=== PATIENT | female | born 1935 | race Caucasian/White ===

== ENCOUNTER 2017-08-08 17:29 | Inpatient (IN) ==
[2017-08-08] MEDS ORDERED: hydrALAZINE 20 MG/1 ML VIAL IV ONE (20:35)
[2017-08-08] MEDS ORDERED: PROPRANOLOL 40 MG TABLET PO SCH (21:00)
[2017-08-08] MEDS ORDERED: FUROSEMIDE 40 MG/4 ML VIAL IV ONE (22:00)
[2017-08-09] MEDS: METOPROLOL TARTRATE 25 MG TABLET PO SCH ×2 (00:30→09:48)
[2017-08-09 05:08] LABS: Basophils % 0.4 % (0.0-0.8); Eosinophils # 0.2 10*3/uL (0.0-0.87); Eosinophils % 2.6 % (0.00-10.9); Hematocrit 36.6 VOL% (35.7-47.0); Hemoglobin 12.3 GM/DL (12.0-16.0); Immature Granulocytes % 0.4 %; Immature Granulocytes Absolute 0.03 #; Lymphocytes # 2.3 10*3/uL (1.4-4.0); Lymphocytes % 28.1 % (21.3-54.2); Mean Corpuscular HGB Conc 33.6 GM/DL (32-36); Mean Corpuscular Hemoglobin 29 PG (27-34); Mean Corpuscular Volume 86.9 FL (87-102); Mean Platelet Volume 10.4 FL (9.6-12.0); Monocytes # 0.7 10*3/uL (0.11-0.8); Monocytes % 8.7 % (1.7-12.7); Neutrophils # 4.9 10*3/uL (1.4-7.4); Neutrophils % 59.8 % (38.7-73.9); Platelet Count 210 T/CUMM (130-400); Red Blood Count 4.21 MC/CUMM (3.8-5.5); Red Cell Distribution Width 13.6 % (9.3-17.3); White Blood Count 8.2 T/CUMM (4-12)
[2017-08-09 05:11] LABS: Basophils % 0.5 % (0.0-0.8); Eosinophils # 0.2 10*3/uL (0.0-0.87); Eosinophils % 2.7 % (0.00-10.9); Hematocrit 36.4 VOL% (35.7-47.0); Hemoglobin 11.9 GM/DL (12.0-16.0); Immature Granulocytes % 0.2 %; Immature Granulocytes Absolute 0.02 #; Lymphocytes # 2.3 10*3/uL (1.4-4.0); Lymphocytes % 28.2 % (21.3-54.2); Mean Corpuscular HGB Conc 32.7 GM/DL (32-36); Mean Corpuscular Hemoglobin 29 PG (27-34); Mean Corpuscular Volume 88.6 FL (87-102); Mean Platelet Volume 10.8 FL (9.6-12.0); Monocytes # 0.7 10*3/uL (0.11-0.8); Monocytes % 8.6 % (1.7-12.7); Neutrophils # 4.9 10*3/uL (1.4-7.4); Neutrophils % 59.8 % (38.7-73.9); Platelet Count 204 T/CUMM (130-400); Red Blood Count 4.11 MC/CUMM (3.8-5.5); Red Cell Distribution Width 13.5 % (9.3-17.3); White Blood Count 8.1 T/CUMM (4-12)
[2017-08-09 05:52] LABS: Albumin 3.5 G/DL (3.4-5.0); Bilirubin,Total 1.1 MG/DL (0.2-1.0); Calcium 8.9 MG/DL (8.5-10.1); Osmolality,Calculated 285.1 MOS/KG (273-304); Potassium 3.6 MMOL/L (3.5-5.1); Total Protein 6.1 G/DL (6.4-8.3)
[2017-08-09] MEDS: ENOXAPARIN 80 MG/0.8 ML SYRINGE SUBCUT SCH ×2 (08:32→21:50)
[2017-08-09] MEDS ORDERED: amLODIPine 2.5 MG TABLET PO SCH (09:00)
[2017-08-09] MEDS: MULTIVITAMIN (OCUVITE) TABLET PO SCH (09:44)
[2017-08-09] MEDS: GLUCOSAMINE 500 MG TABLET PO SCH (09:45)
[2017-08-09] MEDS: GABAPENTIN 100 MG CAPSULE PO SCH ×2 (09:45→21:50)
[2017-08-09] MEDS: CALCIUM (CARBONATE)/VITAMIN D 600 MG-400 UNIT TABLET PO SCH (09:45)
[2017-08-09] MEDS: ASPIRIN CHEW 81 MG TABLET PO SCH (09:46)
[2017-08-09] MEDS: PANTOPRAZOLE 40 MG TABLET PO SCH (09:47)
[2017-08-09] MEDS: DULoxetine 30 MG CAPSULE PO SCH (09:47)
[2017-08-09] MEDS: CYCLOBENZAPRINE 10 MG TABLET PO PRN (09:47)
[2017-08-09] MEDS: DILTIAZEM INJ 100 MG in SODIUM CHLORIDE 0.9% 100 ML IV SCH ×2 (12:02→21:31)
[2017-08-09 13:51] LABS: Apearance,Urine Slightly Hazy (Clear); Bacteria,Urine Occasional /HPF (Few); Bilirubin,Urine Negative (Negative); Blood, Urine Negative (Negative); Glucose,Urine (UA) Negative (Negative); Hyaline Casts,Urine 1 /LPF (0-3); Ketones,Urine Negative (Negative); Mucus,Urine Occasional /LPF (Occasional); Nitrite,Urine Positive (Negative); Protein,Urine Negative; RBC,Urine 2 /HPF (0-4); Squamous Epithelial Cell,Urine Occasional /HPF (0-10); Urine Color Yellow (Yellow); Urine Specific Gravity 1.012 (1.001-1.035); Urine Urobilinogen < 2.0 EU/DL (0.2-1.0); WBC,Urine 92 /HPF (0-6)
[2017-08-09] MEDS: METOPROLOL TARTRATE 50 MG TABLET PO SCH (21:49)
[2017-08-10] MEDS: DILTIAZEM INJ 100 MG in SODIUM CHLORIDE 0.9% 100 ML IV SCH ×3 (01:20→14:34)
[2017-08-10 04:57] LABS: Basophils % 0.4 % (0.0-0.8); Eosinophils # 0.2 10*3/uL (0.0-0.87); Eosinophils % 2.3 % (0.00-10.9); Hematocrit 37.5 VOL% (35.7-47.0); Hemoglobin 12.1 GM/DL (12.0-16.0); Immature Granulocytes % 0.3 %; Immature Granulocytes Absolute 0.03 #; Lymphocytes # 2.7 10*3/uL (1.4-4.0); Mean Corpuscular HGB Conc 32.3 GM/DL (32-36); Mean Corpuscular Hemoglobin 29 PG (27-34); Mean Corpuscular Volume 89.5 FL (87-102); Mean Platelet Volume 10.4 FL (9.6-12.0); Monocytes # 0.8 10*3/uL (0.11-0.8); Monocytes % 8.5 % (1.7-12.7); Neutrophils # 5.4 10*3/uL (1.4-7.4); Neutrophils % 59.5 % (38.7-73.9); Platelet Count 201 T/CUMM (130-400); Red Blood Count 4.19 MC/CUMM (3.8-5.5); Red Cell Distribution Width 13.5 % (9.3-17.3); White Blood Count 9.1 T/CUMM (4-12)
[2017-08-10 05:37] LABS: Calcium 8.5 MG/DL (8.5-10.1); Magnesium 1.9 MG/DL (1.8-2.4); Potassium 3.6 MMOL/L (3.5-5.1); Thyroid Stimulating Hormone 1.51 uIU/ml (0.358-3.74)
[2017-08-10] MEDS: GLUCOSAMINE 500 MG TABLET PO SCH (08:50)
[2017-08-10] MEDS: MULTIVITAMIN (OCUVITE) TABLET PO SCH (08:50)
[2017-08-10] MEDS: GABAPENTIN 100 MG CAPSULE PO SCH ×2 (08:50→21:38)
[2017-08-10] MEDS: METOPROLOL TARTRATE 50 MG TABLET PO SCH (08:50)
[2017-08-10] MEDS: ASPIRIN CHEW 81 MG TABLET PO SCH (08:50)
[2017-08-10] MEDS: CALCIUM (CARBONATE)/VITAMIN D 600 MG-400 UNIT TABLET PO SCH (08:50)
[2017-08-10] MEDS: DULoxetine 30 MG CAPSULE PO SCH (08:50)
[2017-08-10] MEDS: ENOXAPARIN 80 MG/0.8 ML SYRINGE SUBCUT SCH ×2 (08:51→21:37)
[2017-08-10] MEDS: PANTOPRAZOLE 40 MG TABLET PO SCH (08:51)
[2017-08-10] MEDS: SOTALOL 80 MG TABLET PO SCH ×2 (10:45→21:39)
[2017-08-10] MEDS ORDERED: MAGNESIUM SULF RIDER 2 GM in PREMIX 1 EACH IV PRN (14:12)
[2017-08-10] MEDS ORDERED: POTASSIUM CHLORIDE RIDER 10 MEQ in PREMIX 1 EACH IV PRN (14:12)
[2017-08-10] MEDS: POTASSIUM CHLORIDE 20 MEQ TABLET PO PRN ×2 (14:33→16:41)
[2017-08-10] MEDS ORDERED: ONDANSETRON 4 MG/2 ML VIAL IV PRN (16:29)
[2017-08-10] MEDS: CYCLOBENZAPRINE 10 MG TABLET PO PRN (16:41)
[2017-08-10] MEDS: METOPROLOL TARTRATE 25 MG TABLET PO SCH (21:38)
[2017-08-10] MEDS: SODIUM CHLORIDE 0.45% 1,000 ML IV SCH ×2 (21:40→23:21)
[2017-08-11 05:14] LABS: Basophils % 0.5 % (0.0-0.8); Eosinophils # 0.2 10*3/uL (0.0-0.87); Eosinophils % 2.5 % (0.00-10.9); Hematocrit 36.3 VOL% (35.7-47.0); Hemoglobin 11.8 GM/DL (12.0-16.0); Immature Granulocytes % 0.5 %; Immature Granulocytes Absolute 0.04 #; Lymphocytes # 2.1 10*3/uL (1.4-4.0); Lymphocytes % 27.3 % (21.3-54.2); Mean Corpuscular HGB Conc 32.5 GM/DL (32-36); Mean Corpuscular Hemoglobin 29 PG (27-34); Mean Corpuscular Volume 89.4 FL (87-102); Mean Platelet Volume 10.6 FL (9.6-12.0); Monocytes # 0.8 10*3/uL (0.11-0.8); Monocytes % 10.7 % (1.7-12.7); Neutrophils # 4.5 10*3/uL (1.4-7.4); Neutrophils % 58.5 % (38.7-73.9); Platelet Count 189 T/CUMM (130-400); Red Blood Count 4.06 MC/CUMM (3.8-5.5); Red Cell Distribution Width 13.5 % (9.3-17.3); White Blood Count 7.7 T/CUMM (4-12)
[2017-08-11 05:51] LABS: Calcium 8.6 MG/DL (8.5-10.1); Osmolality,Calculated 286.1 MOS/KG (273-304); Potassium 4.1 MMOL/L (3.5-5.1)
[2017-08-11] MEDS ORDERED: DIAZEPAM 5 MG TABLET PO ONE (06:30)
[2017-08-11] MEDS ORDERED: diphenhydrAMINE CAP 25 MG CAPSULE PO ONE (06:30)
[2017-08-11] MEDS: DILTIAZEM INJ 100 MG in SODIUM CHLORIDE 0.9% 100 ML IV SCH ×2 (06:52→13:45)
[2017-08-11] MEDS ORDERED: HEPARIN/NACL 0.9% 2 UNITS/ML 2,000 ML IV ONE (08:24)
[2017-08-11] MEDS ORDERED: LIDOCAINE 1% 20 ML VIAL ONE (08:24)
[2017-08-11] MEDS: SOTALOL 80 MG TABLET PO SCH ×2 (09:03→20:41)
[2017-08-11] MEDS: ASPIRIN CHEW 81 MG TABLET PO SCH (09:03)
[2017-08-11] MEDS: CALCIUM (CARBONATE)/VITAMIN D 600 MG-400 UNIT TABLET PO SCH (09:03)
[2017-08-11] MEDS: DULoxetine 30 MG CAPSULE PO SCH (09:03)
[2017-08-11] MEDS: GABAPENTIN 100 MG CAPSULE PO SCH ×2 (09:03→20:41)
[2017-08-11] MEDS: METOPROLOL TARTRATE 25 MG TABLET PO SCH ×2 (09:03→20:41)
[2017-08-11] MEDS: MULTIVITAMIN (OCUVITE) TABLET PO SCH (09:03)
[2017-08-11] MEDS: PANTOPRAZOLE 40 MG TABLET PO SCH (09:04)
[2017-08-11] MEDS: GLUCOSAMINE 500 MG TABLET PO SCH (09:09)
[2017-08-11] MEDS ORDERED: fentaNYL 100 MCG/2 ML VIAL ONE (09:57)
[2017-08-11] MEDS ORDERED: MIDAZOLAM 2 MG/2 ML VIAL ONE (09:57)
[2017-08-11] MEDS: SODIUM CHLORIDE 0.45% 1,000 ML IV SCH (13:00)
[2017-08-11] MEDS ORDERED: LEVOFLOXACIN INJ 750 MG in PREMIX 1 EACH IV SCH (13:30)
[2017-08-11] MEDS: APIXABAN 5 MG TABLET PO SCH (20:41)
[2017-08-11] MEDS ORDERED: ACETAMINOPHEN 500 MG TABLET PO PRN (23:06)
[2017-08-12] MEDS ORDERED: ACETAMINOPHEN 500 MG TABLET PO SCH
[2017-08-12] MEDS: SODIUM CHLORIDE 0.45% 1,000 ML IV SCH ×2 (02:21→23:10)
[2017-08-12 04:22] LABS: Basophils % 0.3 % (0.0-0.8); Eosinophils # 0.2 10*3/uL (0.0-0.87); Hematocrit 36.1 VOL% (35.7-47.0); Hemoglobin 11.9 GM/DL (12.0-16.0); Immature Granulocytes % 0.1 %; Immature Granulocytes Absolute 0.01 #; Lymphocytes # 1.6 10*3/uL (1.4-4.0); Lymphocytes % 21.6 % (21.3-54.2); Mean Corpuscular Hemoglobin 29 PG (27-34); Mean Platelet Volume 10.8 FL (9.6-12.0); Monocytes # 0.6 10*3/uL (0.11-0.8); Monocytes % 7.9 % (1.7-12.7); Neutrophils # 4.9 10*3/uL (1.4-7.4); Neutrophils % 67.1 % (38.7-73.9); Platelet Count 176 T/CUMM (130-400); Red Cell Distribution Width 13.2 % (9.3-17.3); White Blood Count 7.3 T/CUMM (4-12)
[2017-08-12 04:50] LABS: Calcium 8.7 MG/DL (8.5-10.1); Magnesium 1.8 MG/DL (1.8-2.4); Osmolality,Calculated 283.3 MOS/KG (273-304)
[2017-08-12] MEDS: PANTOPRAZOLE 40 MG TABLET PO SCH (10:18)
[2017-08-12] MEDS: METOPROLOL TARTRATE 25 MG TABLET PO SCH (10:18)
[2017-08-12] MEDS: SOTALOL 80 MG TABLET PO SCH ×2 (10:18→21:33)
[2017-08-12] MEDS: DULoxetine 30 MG CAPSULE PO SCH (10:18)
[2017-08-12] MEDS: ASPIRIN CHEW 81 MG TABLET PO SCH (10:18)
[2017-08-12] MEDS: APIXABAN 5 MG TABLET PO SCH ×2 (10:18→21:34)
[2017-08-12] MEDS: CALCIUM (CARBONATE)/VITAMIN D 600 MG-400 UNIT TABLET PO SCH (10:18)
[2017-08-12] MEDS: GLUCOSAMINE 500 MG TABLET PO SCH (10:18)
[2017-08-12] MEDS: GABAPENTIN 100 MG CAPSULE PO SCH ×2 (10:18→21:34)
[2017-08-12] MEDS: MULTIVITAMIN (OCUVITE) TABLET PO SCH (10:18)
[2017-08-12] MEDS ORDERED: diphenhydrAMINE 2% CREAM 28 GM TUBE TOP PRN (10:42)
[2017-08-12] MEDS ORDERED: diphenhydrAMINE CAP 25 MG CAPSULE PO PRN (10:43)
[2017-08-12] MEDS ORDERED: methylPREDNISolone SOD SUC 125 MG/2 ML VIAL IV ONE (10:44)
[2017-08-12] MEDS ORDERED: IPRATROPIUM 500 MCG/2.5 ML NEB RESP TX PRN (12:44)
[2017-08-12] MEDS: DILTIAZEM INJ 100 MG in SODIUM CHLORIDE 0.9% 100 ML IV SCH (13:33)
[2017-08-12] MEDS: SULFAMETHOX/TRIMETHOPRIM 800-160 MG TABLET PO SCH (21:33)
[2017-08-12] MEDS: METOPROLOL TARTRATE 50 MG TABLET PO SCH (21:34)
[2017-08-13] MEDS: SODIUM CHLORIDE 0.45% 1,000 ML IV SCH (03:16)
[2017-08-13 05:06] LABS: Hematocrit 35.5 VOL% (35.7-47.0); Hemoglobin 11.9 GM/DL (12.0-16.0); Immature Granulocytes % 0.5 %; Immature Granulocytes Absolute 0.03 #; Lymphocytes # 0.7 10*3/uL (1.4-4.0); Mean Corpuscular HGB Conc 33.5 GM/DL (32-36); Mean Corpuscular Hemoglobin 29 PG (27-34); Mean Corpuscular Volume 85.7 FL (87-102); Mean Platelet Volume 10.8 FL (9.6-12.0); Monocytes # 0.3 10*3/uL (0.11-0.8); Monocytes % 4.7 % (1.7-12.7); Neutrophils # 5.3 10*3/uL (1.4-7.4); Neutrophils % 83.8 % (38.7-73.9); Platelet Count 187 T/CUMM (130-400); Red Blood Count 4.14 MC/CUMM (3.8-5.5); White Blood Count 6.4 T/CUMM (4-12)
[2017-08-13 05:30] LABS: Calcium 8.3 MG/DL (8.5-10.1); Osmolality,Calculated 284.4 MOS/KG (273-304); Potassium 3.9 MMOL/L (3.5-5.1)
[2017-08-13] MEDS: GLUCOSAMINE 500 MG TABLET PO SCH (09:21)
[2017-08-13] MEDS: SOTALOL 80 MG TABLET PO SCH (09:21)
[2017-08-13] MEDS: CALCIUM (CARBONATE)/VITAMIN D 600 MG-400 UNIT TABLET PO SCH (09:21)
[2017-08-13] MEDS: MULTIVITAMIN (OCUVITE) TABLET PO SCH (09:21)
[2017-08-13] MEDS: ASPIRIN CHEW 81 MG TABLET PO SCH (09:22)
[2017-08-13] MEDS: DULoxetine 30 MG CAPSULE PO SCH (09:22)
[2017-08-13] MEDS: SULFAMETHOX/TRIMETHOPRIM 800-160 MG TABLET PO SCH (09:22)
[2017-08-13] MEDS: PANTOPRAZOLE 40 MG TABLET PO SCH (09:22)
[2017-08-13] MEDS: POTASSIUM CHLORIDE 20 MEQ TABLET PO PRN (09:22)
[2017-08-13] MEDS: METOPROLOL TARTRATE 50 MG TABLET PO SCH (09:23)
[2017-08-13] MEDS: GABAPENTIN 100 MG CAPSULE PO SCH (09:23)
[2017-08-13] MEDS: APIXABAN 5 MG TABLET PO SCH (09:23)
[2017-08-13 12:12] VITALS: BP 165/80
[2017-08-13] MEDS: DILTIAZEM INJ 100 MG in SODIUM CHLORIDE 0.9% 100 ML IV SCH (13:38)
== END 2017-08-13 14:49 | disposition home health service (06) | DRG 286 ==
LOC: N.TELEN 17:53 → SUATTDRO 17:53
PROVIDERS: ADMIT Internal Medicine; ATTEND Internal Medicine Cardiovascular Disease
PROC: CLCCHCL (ICD-10-PCS; 2017-08-11 10:15)

== ENCOUNTER 2019-07-02 11:55 | Inpatient (IN) ==
[2019-07-02] MEDS ORDERED: ONDANSETRON 4 MG/2 ML VIAL IV PRN (12:46)
[2019-07-02] MEDS ORDERED: LOPERAMIDE 2 MG CAPSULE PO PRN (12:54)
[2019-07-02 14:20] LABS: Basophils % 0.3 % (0.0-0.8); Eosinophils # 0.3 10*3/uL (0.0-0.87); Eosinophils % 3.2 % (0.00-10.9); Hematocrit 39.6 VOL% (35.7-47.0); Hemoglobin 12.9 GM/DL (12.0-16.0); Immature Granulocytes % 0.7 %; Immature Granulocytes Absolute 0.07 #; Lymphocytes # 0.3 10*3/uL (1.4-4.0); Lymphocytes % 2.7 % (21.3-54.2); Mean Corpuscular HGB Conc 32.6 GM/DL (32-36); Mean Corpuscular Volume 87.8 FL (87-102); Mean Platelet Volume 10.3 FL (9.6-12.0); Monocytes % 6.2 % (1.7-12.7); Neutrophils % 86.9 % (38.7-73.9); Platelet Count 184 T/CUMM (130-400); Red Blood Count 4.51 MC/CUMM (3.8-5.5); Red Cell Distribution Width 13.3 % (9.3-17.3); White Blood Count 9.7 T/CUMM (4-12)
[2019-07-02 14:42] LABS: Alanine Aminotransferase < 6 U/L (13-56); Albumin 3.3 G/DL (3.4-5.0); Alkaline Phosphatase 57 U/L (45-117); Aspartate Amino Transferase 16 U/L (0-37); Blood Urea Nitrogen 23 MG/DL (7-18); Calcium 8.3 MG/DL (8.5-10.1); Estimated Glom Filtration Rate 54 ML/MIN; Glucose 120 MG/DL (74-106); Osmolality,Calculated 283.4 MOS/KG (273-304); Total Protein 6.6 G/DL (6.4-8.3)
[2019-07-02 14:49] LABS: Anisocytosis Slight; Band Neutrophils 3 % (0-10); Eosinophils 4 % (0-10); Lymphocytes 4 % (20-55); Microcytosis Slight; Platelet Estimate Decreased; Segmented Neutrophils 84 % (50-85); Total Cells Counted 100
[2019-07-02] MEDS ORDERED: POTASSIUM CHLORIDE 20 MEQ TABLET PO ONE (16:07)
[2019-07-02] MEDS ORDERED: MAGNESIUM SULF RIDER 2 GM in PREMIX 1 EACH IV ONE (16:08)
[2019-07-02] MEDS: POTASSIUM CHLORIDE INJ 10 MEQ in SODIUM CHLORIDE 0.9% 1,000 ML IV SCH (16:12)
[2019-07-02] MEDS ORDERED: MAGNESIUM SULF RIDER 4 GM in PREMIX 1 EACH IV PRN (16:27)
[2019-07-02] MEDS: MAGNESIUM SULF RIDER 2 GM in PREMIX 1 EACH IV PRN (17:32)
[2019-07-02] MEDS ORDERED: CETIRIZINE 10 MG TABLET PO PRN (17:48)
[2019-07-02] MEDS: VANCOMYCIN 50 MG/ML 60 ML/BOTTLE PO SCH (19:55)
[2019-07-02] MEDS: ENOXAPARIN 30 MG/0.3 ML SYRINGE SUBCUT SCH (21:20)
[2019-07-03] MEDS: POTASSIUM CHLORIDE INJ 10 MEQ in SODIUM CHLORIDE 0.9% 1,000 ML IV SCH ×3 (00:28→17:07)
[2019-07-03] MEDS: VANCOMYCIN 50 MG/ML 60 ML/BOTTLE PO SCH ×4 (01:03→17:05)
[2019-07-03 01:39] LABS: Apearance,Urine CLEAR (Clear); Bacteria,Urine Occasional /HPF (Few); Blood, Urine Small mg/dL (Negative); Glucose,Urine (UA) Negative (Negative); Hyaline Casts,Urine 11 /LPF (0-3); Ketones,Urine 80 mg/dL (Negative); Mucus,Urine Occasional /LPF (Occasional); Nitrite,Urine Negative (Negative); Protein,Urine 100 MG/DL; RBC,Urine 13 /HPF (0-4); Renal Epithelial Cells,Urine Occasional /HPF (<1); Squamous Epithelial Cell,Urine Occasional /HPF (0-10); Urine Color Amber (Yellow); Urine Specific Gravity 1.028 (1.001-1.035); Urine Urobilinogen < 2.0 EU/DL (0.2-1.0); WBC,Urine 31 /HPF (0-6)
[2019-07-03 01:40] LABS: Bilirubin,Urine Moderate mg/dL (Negative)
[2019-07-03 08:22] LABS: Osmolality,Calculated 281.4 MOS/KG (273-304)
[2019-07-03] MEDS ORDERED: PROPRANOLOL PO SCH (09:00)
[2019-07-03] MEDS ORDERED: CARBIDOPA/LEVODOPA 25-100 MG TABLET PO SCH (09:00)
[2019-07-03] MEDS: GABAPENTIN 600 MG TABLET PO SCH (10:43)
[2019-07-03] MEDS: PANTOPRAZOLE 40 MG TABLET PO SCH (10:44)
[2019-07-03 11:22] LABS: Basophils % 0.3 % (0.0-0.8); Eosinophils # 0.3 10*3/uL (0.0-0.87); Eosinophils % 3.5 % (0.00-10.9); Hematocrit 36.1 VOL% (35.7-47.0); Hemoglobin 11.7 GM/DL (12.0-16.0); Immature Granulocytes % 0.7 %; Immature Granulocytes Absolute 0.07 #; Lymphocytes # 0.4 10*3/uL (1.4-4.0); Lymphocytes % 3.8 % (21.3-54.2); Mean Corpuscular HGB Conc 32.4 GM/DL (32-36); Mean Corpuscular Volume 89.1 FL (87-102); Mean Platelet Volume 10.8 FL (9.6-12.0); Monocytes % 8.5 % (1.7-12.7); Neutrophils % 83.2 % (38.7-73.9); Platelet Count 166 T/CUMM (130-400); Red Blood Count 4.05 MC/CUMM (3.8-5.5); Red Cell Distribution Width 13.4 % (9.3-17.3); White Blood Count 9.5 T/CUMM (4-12)
[2019-07-03 12:00] LABS: Band Neutrophils 9 % (0-10); Eosinophils 7 % (0-10); Lymphocytes 4 % (20-55); Segmented Neutrophils 74 % (50-85); Total Cells Counted 100
[2019-07-03] MEDS ORDERED: cefTRIAXone 1,000 MG in SYRINGE 1 EACH IV SCH (12:00)
[2019-07-03 12:01] LABS: Microcytosis Slight
[2019-07-03 12:02] LABS: Platelet Estimate Adequate
[2019-07-03 13:14] LABS: Calcium 7.8 MG/DL (8.5-10.1); Osmolality,Calculated 285.1 MOS/KG (273-304)
[2019-07-03] MEDS ORDERED: POTASSIUM CHLORIDE 20 MEQ TABLET PO ONE (16:35)
[2019-07-03] MEDS: CARBIDOPA/LEVODOPA 25-100 MG TABLET PO SCH ×2 (17:05→20:50)
[2019-07-03] MEDS ORDERED: IBUPROFEN 400 MG TABLET PO PRN (20:28)
[2019-07-03] MEDS: ENOXAPARIN 30 MG/0.3 ML SYRINGE SUBCUT SCH (20:50)
[2019-07-04] MEDS: VANCOMYCIN 50 MG/ML 60 ML/BOTTLE PO SCH ×5 (00:50→23:56)
[2019-07-04] MEDS: POTASSIUM CHLORIDE INJ 10 MEQ in SODIUM CHLORIDE 0.9% 1,000 ML IV SCH ×2 (00:50→10:10)
[2019-07-04 06:08] LABS: Basophils % 0.3 % (0.0-0.8); Eosinophils # 0.4 10*3/uL (0.0-0.87); Hematocrit 36.1 VOL% (35.7-47.0); Hemoglobin 11.5 GM/DL (12.0-16.0); Immature Granulocytes % 1.5 %; Immature Granulocytes Absolute 0.11 #; Lymphocytes # 0.6 10*3/uL (1.4-4.0); Lymphocytes % 7.7 % (21.3-54.2); Mean Corpuscular HGB Conc 31.9 GM/DL (32-36); Mean Corpuscular Volume 89.8 FL (87-102); Mean Platelet Volume 10.1 FL (9.6-12.0); Neutrophils % 78.5 % (38.7-73.9); Platelet Count 134 T/CUMM (130-400); Red Blood Count 4.02 MC/CUMM (3.8-5.5); Red Cell Distribution Width 13.6 % (9.3-17.3); White Blood Count 7.4 T/CUMM (4-12)
[2019-07-04 06:22] LABS: Calcium 7.8 MG/DL (8.5-10.1); Osmolality,Calculated 292.4 MOS/KG (273-304)
[2019-07-04] MEDS: CARBIDOPA/LEVODOPA 25-100 MG TABLET PO SCH ×3 (08:55→22:17)
[2019-07-04] MEDS: GABAPENTIN 600 MG TABLET PO SCH (08:55)
[2019-07-04] MEDS: PANTOPRAZOLE 40 MG TABLET PO SCH (08:55)
[2019-07-04] MEDS: metroNIDAZOLE INJ 500 MG in PREMIX 1 EACH IV SCH ×2 (09:01→17:43)
[2019-07-04] MEDS: ENOXAPARIN 30 MG/0.3 ML SYRINGE SUBCUT SCH (22:17)
[2019-07-05] MEDS: metroNIDAZOLE INJ 500 MG in PREMIX 1 EACH IV SCH (00:05)
[2019-07-05 05:32] LABS: Basophils % 0.3 % (0.0-0.8); Eosinophils # 0.5 10*3/uL (0.0-0.87); Eosinophils % 3.7 % (0.00-10.9); Hematocrit 37.9 VOL% (35.7-47.0); Hemoglobin 12.3 GM/DL (12.0-16.0); Immature Granulocytes % 1.8 %; Immature Granulocytes Absolute 0.22 #; Lymphocytes # 0.9 10*3/uL (1.4-4.0); Lymphocytes % 7.1 % (21.3-54.2); Mean Corpuscular HGB Conc 32.5 GM/DL (32-36); Mean Corpuscular Volume 87.1 FL (87-102); Mean Platelet Volume 10.4 FL (9.6-12.0); Monocytes % 5.6 % (1.7-12.7); Neutrophils % 81.5 % (38.7-73.9); Platelet Count 173 T/CUMM (130-400); Red Blood Count 4.35 MC/CUMM (3.8-5.5); Red Cell Distribution Width 13.3 % (9.3-17.3); White Blood Count 12.6 T/CUMM (4-12)
[2019-07-05] MEDS: POTASSIUM CHLORIDE INJ 10 MEQ in SODIUM CHLORIDE 0.9% 1,000 ML IV SCH ×3 (05:35→19:36)
[2019-07-05 05:43] LABS: Calcium 7.9 MG/DL (8.5-10.1); Osmolality,Calculated 276.5 MOS/KG (273-304)
[2019-07-05 05:44] LABS: Calcium 7.7 MG/DL (8.5-10.1); Osmolality,Calculated 281.1 MOS/KG (273-304)
[2019-07-05] MEDS: VANCOMYCIN 50 MG/ML 60 ML/BOTTLE PO SCH ×3 (05:52→17:48)
[2019-07-05] MEDS ORDERED: APIXABAN 5 MG TABLET PO ONE (07:28)
[2019-07-05] MEDS ORDERED: METOPROLOL TARTRATE 5 MG/5 ML VIAL IV ONE ×3 (07:42→08:00)
[2019-07-05] MEDS: APIXABAN 5 MG TABLET PO SCH ×2 (07:44→21:11)
[2019-07-05] MEDS: PROPRANOLOL 40 MG TABLET PO SCH ×2 (07:44→21:11)
[2019-07-05] MEDS: POTASSIUM CHLORIDE 20 MEQ TABLET PO SCH (07:44)
[2019-07-05] MEDS: MAGNESIUM CHLORIDE 64 MG TABLET PO SCH (07:44)
[2019-07-05] MEDS: GABAPENTIN 600 MG TABLET PO SCH (09:15)
[2019-07-05] MEDS: CARBIDOPA/LEVODOPA 25-100 MG TABLET PO SCH ×3 (09:15→21:11)
[2019-07-05] MEDS: PANTOPRAZOLE 40 MG TABLET PO SCH (09:15)
[2019-07-05] MEDS ORDERED: TUBERCULIN SKIN TEST 0.1 ML SYRINGE INTRADERM ONE (14:00)
[2019-07-05] MEDS: LORATADINE 10 MG TABLET PO SCH (14:40)
[2019-07-05] MEDS ORDERED: POTASSIUM CHLORIDE 20 MEQ TABLET PO ONE (17:02)
[2019-07-06] MEDS: VANCOMYCIN 50 MG/ML 60 ML/BOTTLE PO SCH ×4 (00:22→18:05)
[2019-07-06] MEDS: POTASSIUM CHLORIDE INJ 10 MEQ in SODIUM CHLORIDE 0.9% 1,000 ML IV SCH ×3 (06:24→21:18)
[2019-07-06 08:05] LABS: Basophils % 0.3 % (0.0-0.8); Eosinophils # 0.5 10*3/uL (0.0-0.87); Eosinophils % 4.6 % (0.00-10.9); Hematocrit 36.3 VOL% (35.7-47.0); Immature Granulocytes % 1.2 %; Immature Granulocytes Absolute 0.14 #; Lymphocytes # 1.5 10*3/uL (1.4-4.0); Lymphocytes % 13.4 % (21.3-54.2); Mean Corpuscular HGB Conc 33.1 GM/DL (32-36); Mean Corpuscular Volume 85.8 FL (87-102); Mean Platelet Volume 10.4 FL (9.6-12.0); Monocytes % 7.3 % (1.7-12.7); Neutrophils % 73.2 % (38.7-73.9); Platelet Count 172 T/CUMM (130-400); Red Blood Count 4.23 MC/CUMM (3.8-5.5); Red Cell Distribution Width 13.7 % (9.3-17.3); White Blood Count 11.4 T/CUMM (4-12)
[2019-07-06] MEDS: POTASSIUM CHLORIDE 20 MEQ TABLET PO SCH (09:19)
[2019-07-06] MEDS: LACTOBACILLUS ACIDOPHILUS/BULGARICUS CAPLET PO SCH (09:19)
[2019-07-06] MEDS: GABAPENTIN 600 MG TABLET PO SCH (09:19)
[2019-07-06] MEDS: MAGNESIUM CHLORIDE 64 MG TABLET PO SCH (09:20)
[2019-07-06] MEDS: LORATADINE 10 MG TABLET PO SCH (09:20)
[2019-07-06] MEDS: PANTOPRAZOLE 40 MG TABLET PO SCH (09:20)
[2019-07-06] MEDS: CARBIDOPA/LEVODOPA 25-100 MG TABLET PO SCH ×3 (09:20→21:19)
[2019-07-06] MEDS: PROPRANOLOL 40 MG TABLET PO SCH ×2 (09:23→21:19)
[2019-07-06] MEDS: APIXABAN 5 MG TABLET PO SCH ×2 (09:23→21:19)
[2019-07-06 09:30] LABS: Calcium 7.7 MG/DL (8.5-10.1); Osmolality,Calculated 274.7 MOS/KG (273-304)
[2019-07-06] MEDS ORDERED: DIGOXIN 0.5 MG/2 ML AMP IV ONE ×2 (12:00→14:00)
[2019-07-06] MEDS ORDERED: MAGNESIUM SULF RIDER 2 GM in PREMIX 1 EACH IV ONE (12:00)
[2019-07-06] MEDS: DILTIAZEM 30 MG TABLET PO SCH ×2 (12:51→21:19)
[2019-07-06] MEDS ORDERED: ALBUTEROL/IPRATROPIUM 3 ML NEB RESP TX PRN (23:55)
[2019-07-07] MEDS: VANCOMYCIN 50 MG/ML 60 ML/BOTTLE PO SCH ×4 (00:02→17:08)
[2019-07-07 05:34] LABS: Basophils % 0.4 % (0.0-0.8); Eosinophils # 0.5 10*3/uL (0.0-0.87); Eosinophils % 5.3 % (0.00-10.9); Hematocrit 35.8 VOL% (35.7-47.0); Hemoglobin 11.8 GM/DL (12.0-16.0); Immature Granulocytes % 1.2 %; Immature Granulocytes Absolute 0.12 #; Lymphocytes % 19.2 % (21.3-54.2); Mean Corpuscular Volume 86.7 FL (87-102); Mean Platelet Volume 10.6 FL (9.6-12.0); Monocytes % 8.8 % (1.7-12.7); Neutrophils % 65.1 % (38.7-73.9); Platelet Count 179 T/CUMM (130-400); Red Blood Count 4.13 MC/CUMM (3.8-5.5); Red Cell Distribution Width 13.5 % (9.3-17.3); White Blood Count 10.2 T/CUMM (4-12)
[2019-07-07 05:54] LABS: Calcium 7.8 MG/DL (8.5-10.1); Osmolality,Calculated 281.1 MOS/KG (273-304)
[2019-07-07 05:56] LABS: Band Neutrophils 1 % (0-10); Eosinophils 9 % (0-10); Lymphocytes 15 % (20-55); Platelet Estimate Adequate; Segmented Neutrophils 67 % (50-85); Total Cells Counted 100
[2019-07-07 05:57] LABS: Hypochromasia 1+
[2019-07-07] MEDS: APIXABAN 5 MG TABLET PO SCH ×2 (10:18→21:27)
[2019-07-07] MEDS: LORATADINE 10 MG TABLET PO SCH (10:18)
[2019-07-07] MEDS: LACTOBACILLUS ACIDOPHILUS/BULGARICUS CAPLET PO SCH (10:18)
[2019-07-07] MEDS: MAGNESIUM CHLORIDE 64 MG TABLET PO SCH (10:18)
[2019-07-07] MEDS: CARBIDOPA/LEVODOPA 25-100 MG TABLET PO SCH ×3 (10:19→21:27)
[2019-07-07] MEDS: PROPRANOLOL 40 MG TABLET PO SCH ×2 (10:19→21:27)
[2019-07-07] MEDS: PANTOPRAZOLE 40 MG TABLET PO SCH (10:19)
[2019-07-07] MEDS: GABAPENTIN 600 MG TABLET PO SCH (10:19)
[2019-07-07] MEDS: POTASSIUM CHLORIDE 20 MEQ TABLET PO SCH (10:20)
[2019-07-07] MEDS: DILTIAZEM CD 180 MG CAPSULE PO SCH (10:26)
[2019-07-07 11:24] LABS: Apearance,Urine CLEAR (Clear); Bilirubin,Urine Negative (Negative); Blood, Urine Small mg/dL (Negative); Glucose,Urine (UA) Negative (Negative); Hyaline Casts,Urine 1 /LPF (0-3); Ketones,Urine 5 mg/dL (Negative); Mucus,Urine Few /LPF (Occasional); Nitrite,Urine Negative (Negative); Protein,Urine Negative; RBC,Urine 1 /HPF (0-4); Squamous Epithelial Cell,Urine Occasional /HPF (0-10); Urine Color Yellow (Yellow); Urine Specific Gravity 1.008 (1.001-1.035); Urine Urobilinogen < 2.0 EU/DL (0.2-1.0); WBC,Urine <1 /HPF (0-6)
[2019-07-07] MEDS: MAGNESIUM SULF RIDER 2 GM in PREMIX 1 EACH IV PRN (11:46)
[2019-07-07] MEDS ORDERED: POTASSIUM CHLORIDE 20 MEQ TABLET PO ONE (12:30)
[2019-07-08] MEDS: VANCOMYCIN 50 MG/ML 60 ML/BOTTLE PO SCH ×3 (00:13→12:56)
[2019-07-08 05:45] LABS: Basophils # 0.1 10*3/uL (0.0-0.2); Basophils % 0.5 % (0.0-0.8); Eosinophils # 0.5 10*3/uL (0.0-0.87); Eosinophils % 4.7 % (0.00-10.9); Hematocrit 36.8 VOL% (35.7-47.0); Hemoglobin 12.1 GM/DL (12.0-16.0); Immature Granulocytes % 0.9 %; Immature Granulocytes Absolute 0.09 #; Lymphocytes # 1.9 10*3/uL (1.4-4.0); Lymphocytes % 19.1 % (21.3-54.2); Mean Corpuscular HGB Conc 32.9 GM/DL (32-36); Mean Corpuscular Volume 86.4 FL (87-102); Mean Platelet Volume 10.8 FL (9.6-12.0); Monocytes % 6.9 % (1.7-12.7); Neutrophils % 67.9 % (38.7-73.9); Platelet Count 201 T/CUMM (130-400); Red Blood Count 4.26 MC/CUMM (3.8-5.5); Red Cell Distribution Width 13.7 % (9.3-17.3); White Blood Count 9.8 T/CUMM (4-12)
[2019-07-08 06:04] LABS: Calcium 8.2 MG/DL (8.5-10.1); Osmolality,Calculated 277.4 MOS/KG (273-304)
[2019-07-08 06:31] LABS: Eosinophils 1 % (0-10); Lymphocytes 18 % (20-55); Segmented Neutrophils 81 % (50-85); Total Cells Counted 100
[2019-07-08 06:32] LABS: Platelet Estimate Normal; Polychromasia Few
[2019-07-08] MEDS: PROPRANOLOL 40 MG TABLET PO SCH (08:55)
[2019-07-08] MEDS: DILTIAZEM CD 180 MG CAPSULE PO SCH (08:55)
[2019-07-08] MEDS: MAGNESIUM CHLORIDE 64 MG TABLET PO SCH (08:55)
[2019-07-08] MEDS: GABAPENTIN 600 MG TABLET PO SCH (08:56)
[2019-07-08] MEDS: LACTOBACILLUS ACIDOPHILUS/BULGARICUS CAPLET PO SCH (08:56)
[2019-07-08] MEDS: POTASSIUM CHLORIDE 20 MEQ TABLET PO SCH (08:56)
[2019-07-08] MEDS: LORATADINE 10 MG TABLET PO SCH (08:57)
[2019-07-08] MEDS: APIXABAN 5 MG TABLET PO SCH (08:57)
[2019-07-08] MEDS: PANTOPRAZOLE 40 MG TABLET PO SCH (08:57)
[2019-07-08] MEDS: CARBIDOPA/LEVODOPA 25-100 MG TABLET PO SCH ×2 (08:57→20:19)
[2019-07-08] MEDS: POTASSIUM CHLORIDE INJ 10 MEQ in SODIUM CHLORIDE 0.9% 1,000 ML IV SCH ×2 (09:06→09:11)
[2019-07-08] MEDS ORDERED: MAGNESIUM SULF RIDER 2 GM in PREMIX 1 EACH IV PRN (10:14)
[2019-07-08] MEDS ORDERED: MAGNESIUM SULF RIDER 4 GM in PREMIX 1 EACH IV PRN (10:14)
[2019-07-08] MEDS ORDERED: DILTIAZEM 30 MG TABLET PO SCH (11:00)
[2019-07-08 12:21] VITALS: BP 132/71
[2019-07-09] MEDS ORDERED: DILTIAZEM CD 240 MG CAPSULE PO SCH (09:00)
== END 2019-07-08 15:10 | DRG 372 ==
LOC: N.2E 13:21
PROVIDERS: ADMIT Family Medicine; ATTEND Family Medicine

== ENCOUNTER 2019-10-05 15:21 | Inpatient (IN) ==
[2019-10-05] MEDS ORDERED: ACETAMINOPHEN 325 MG TABLET PO PRN (15:27)
[2019-10-05] MEDS ORDERED: ONDANSETRON 4 MG/2 ML VIAL IV PRN (15:27)
[2019-10-05 17:30] LABS: Basophils % 0.3 % (0.0-0.8); Eosinophils # 0.1 10*3/uL (0.0-0.87); Hemoglobin 13.1 GM/DL (12.0-16.0); Immature Granulocytes % 0.6 %; Immature Granulocytes Absolute 0.08 #; Lymphocytes # 2.2 10*3/uL (1.4-4.0); Lymphocytes % 14.8 % (21.3-54.2); Mean Corpuscular HGB Conc 32.8 GM/DL (32-36); Mean Corpuscular Volume 85.3 FL (87-102); Mean Platelet Volume 11.2 FL (9.6-12.0); Monocytes % 8.4 % (1.7-12.7); Neutrophils % 74.9 % (38.7-73.9); Platelet Count 173 T/CUMM (130-400); Red Blood Count 4.69 MC/CUMM (3.8-5.5); Red Cell Distribution Width 14.9 % (9.3-17.3); White Blood Count 14.5 T/CUMM (4-12)
[2019-10-05 17:50] LABS: Alanine Aminotransferase < 6 U/L (13-56); Albumin 3.5 G/DL (3.4-5.0); Alkaline Phosphatase 72 U/L (45-117); Aspartate Amino Transferase 6 U/L (0-37); Blood Urea Nitrogen 17 MG/DL (7-18); Estimated Glom Filtration Rate 69 ML/MIN; Glucose 113 MG/DL (74-106); Osmolality,Calculated 272.1 MOS/KG (273-304)
[2019-10-05] MEDS: SODIUM CHLORIDE 0.9% 1,000 ML IV SCH (18:19)
[2019-10-05] MEDS: VANCOMYCIN 50 MG/ML 60 ML/BOTTLE PO SCH (18:20)
[2019-10-05] MEDS ORDERED: CETIRIZINE 10 MG TABLET PO PRN (20:53)
[2019-10-05] MEDS ORDERED: MONTELUKAST 10 MG TABLET PO PRN (20:53)
[2019-10-05] MEDS ORDERED: VANCOMYCIN PO SCH (21:00)
[2019-10-05] MEDS: PROPRANOLOL 40 MG TABLET PO SCH (21:58)
[2019-10-05] MEDS: GABAPENTIN 300 MG CAPSULE PO SCH (21:58)
[2019-10-05] MEDS: APIXABAN 5 MG TABLET PO SCH (21:58)
[2019-10-05] MEDS: rOPINIRole 0.25 MG TABLET PO SCH (21:59)
[2019-10-06] MEDS: VANCOMYCIN 50 MG/ML 60 ML/BOTTLE PO SCH ×4 (01:15→17:32)
[2019-10-06] MEDS: SODIUM CHLORIDE 0.9% 1,000 ML IV SCH ×5 (01:15→19:13)
[2019-10-06] MEDS: POTASSIUM CHLORIDE 20 MEQ TABLET PO SCH (08:09)
[2019-10-06] MEDS: LACTOBACILLUS ACIDOPHILUS/BULGARICUS CAPLET PO SCH (08:09)
[2019-10-06] MEDS: APIXABAN 5 MG TABLET PO SCH ×2 (08:09→21:29)
[2019-10-06] MEDS: DILTIAZEM CD 180 MG CAPSULE PO SCH (08:09)
[2019-10-06] MEDS: GABAPENTIN 300 MG CAPSULE PO SCH ×3 (08:09→21:26)
[2019-10-06] MEDS: rOPINIRole 0.25 MG TABLET PO SCH ×3 (08:09→21:25)
[2019-10-06] MEDS: CARBIDOPA/LEVODOPA 25-100 MG TABLET PO SCH ×4 (08:09→17:32)
[2019-10-06] MEDS: MAGNESIUM CHLORIDE 64 MG TABLET PO SCH (08:09)
[2019-10-06] MEDS: PROPRANOLOL 40 MG TABLET PO SCH ×2 (09:15→21:25)
[2019-10-06] MEDS ORDERED: MAGNESIUM CITRATE 300 ML BOTTLE PO ONE (16:00)
[2019-10-06] MEDS ORDERED: PANTOPRAZOLE 40 MG VIAL IV SCH (21:00)
[2019-10-06] MEDS: FAMOTIDINE 20 MG TABLET PO SCH (21:26)
[2019-10-07] MEDS: VANCOMYCIN 50 MG/ML 60 ML/BOTTLE PO SCH ×4 (01:31→17:26)
[2019-10-07] MEDS: SODIUM CHLORIDE 0.9% 1,000 ML IV SCH ×3 (02:50→17:11)
[2019-10-07 05:02] LABS: Basophils % 0.3 % (0.0-0.8); Eosinophils # 0.2 10*3/uL (0.0-0.87); Eosinophils % 2.4 % (0.00-10.9); Hematocrit 37.1 VOL% (35.7-47.0); Hemoglobin 12.1 GM/DL (12.0-16.0); Immature Granulocytes % 0.5 %; Immature Granulocytes Absolute 0.05 #; Lymphocytes # 2.1 10*3/uL (1.4-4.0); Lymphocytes % 21.8 % (21.3-54.2); Mean Corpuscular HGB Conc 32.6 GM/DL (32-36); Mean Corpuscular Volume 85.5 FL (87-102); Mean Platelet Volume 11.2 FL (9.6-12.0); Monocytes % 8.6 % (1.7-12.7); Neutrophils % 66.4 % (38.7-73.9); Platelet Count 147 T/CUMM (130-400); Red Blood Count 4.34 MC/CUMM (3.8-5.5); Red Cell Distribution Width 14.7 % (9.3-17.3); White Blood Count 9.6 T/CUMM (4-12)
[2019-10-07 05:18] LABS: INR 1.1; PT Patient Result 11.8 SECS (9.6-12.2)
[2019-10-07 05:36] LABS: Osmolality,Calculated 277.4 MOS/KG (273-304)
[2019-10-07] MEDS ORDERED: MAGNESIUM CITRATE 300 ML BOTTLE PO ONE (06:00)
[2019-10-07] MEDS: POTASSIUM CHLORIDE 20 MEQ TABLET PO SCH ×2 (07:24→08:26)
[2019-10-07] MEDS ORDERED: LACTATED RINGERS 1,000 ML IV SCH (08:00)
[2019-10-07] MEDS: DILTIAZEM CD 180 MG CAPSULE PO SCH (08:24)
[2019-10-07] MEDS: APIXABAN 5 MG TABLET PO SCH ×2 (08:25→21:27)
[2019-10-07] MEDS: PROPRANOLOL 40 MG TABLET PO SCH ×2 (08:26→21:33)
[2019-10-07] MEDS ORDERED: LIDOCAINE 2% 5 ML VIAL ONE (09:00)
[2019-10-07] MEDS ORDERED: propofoL 200 MG/20 ML VIAL IV ONE (09:00)
[2019-10-07] MEDS ORDERED: predniSONE 10 MG TABLET PO SCH (09:00)
[2019-10-07] MEDS: LACTOBACILLUS ACIDOPHILUS/BULGARICUS CAPLET PO SCH (17:08)
[2019-10-07] MEDS: CARBIDOPA/LEVODOPA 25-100 MG TABLET PO SCH ×3 (17:09→17:10)
[2019-10-07] MEDS: GABAPENTIN 300 MG CAPSULE PO SCH ×3 (17:09→21:27)
[2019-10-07] MEDS: rOPINIRole 0.25 MG TABLET PO SCH ×3 (17:09→21:27)
[2019-10-07] MEDS: MAGNESIUM CHLORIDE 64 MG TABLET PO SCH (17:09)
[2019-10-07] MEDS: FAMOTIDINE 20 MG TABLET PO SCH (21:27)
[2019-10-07] MEDS: POTASSIUM CHLORIDE RIDER 10 MEQ in PREMIX 1 EACH IV PRN (21:30)
[2019-10-07 22:24] LABS: Apearance,Urine Slightly Hazy (Clear); Bacteria,Urine Few /HPF (Few); Bilirubin,Urine Negative (Negative); Blood, Urine Small mg/dL (Negative); Glucose,Urine (UA) Negative (Negative); Ketones,Urine 5 mg/dL (Negative); Mucus,Urine Occasional /LPF (Occasional); Nitrite,Urine Negative (Negative); Protein,Urine Negative; RBC,Urine 4 /HPF (0-4); Urine Color Yellow (Yellow); Urine Specific Gravity 1.009 (1.001-1.035); Urine Urobilinogen < 2.0 EU/DL (0.2-1.0); WBC,Urine 56 /HPF (0-6)
[2019-10-08] MEDS: VANCOMYCIN 50 MG/ML 60 ML/BOTTLE PO SCH ×3 (01:11→12:58)
[2019-10-08] MEDS: POTASSIUM CHLORIDE RIDER 10 MEQ in PREMIX 1 EACH IV PRN ×3 (01:15→10:01)
[2019-10-08] MEDS: LACTOBACILLUS ACIDOPHILUS/BULGARICUS CAPLET PO SCH (09:59)
[2019-10-08] MEDS: SODIUM CHLORIDE 0.9% 1,000 ML IV SCH (09:59)
[2019-10-08] MEDS: PROPRANOLOL 40 MG TABLET PO SCH (10:00)
[2019-10-08] MEDS: CARBIDOPA/LEVODOPA 25-100 MG TABLET PO SCH ×2 (10:00→12:59)
[2019-10-08] MEDS: DILTIAZEM CD 180 MG CAPSULE PO SCH (10:00)
[2019-10-08] MEDS: GABAPENTIN 300 MG CAPSULE PO SCH (10:00)
[2019-10-08] MEDS: APIXABAN 5 MG TABLET PO SCH (10:00)
[2019-10-08] MEDS: POTASSIUM CHLORIDE 20 MEQ TABLET PO SCH (10:01)
[2019-10-08] MEDS: MAGNESIUM CHLORIDE 64 MG TABLET PO SCH (10:01)
[2019-10-08] MEDS: rOPINIRole 0.25 MG TABLET PO SCH (10:01)
[2019-10-08 11:49] VITALS: BP 155/80
== END 2019-10-08 14:15 | disposition home health service (06) | DRG 372 ==
LOC: N.2E
PROVIDERS: ADMIT Family Medicine; ATTEND Family Medicine

== ENCOUNTER 2022-01-05 08:30 | Inpatient (IN) ==
[2022-01-05 08:54] LABS: Basophils % 0.5 % (0.0-0.8); Eosinophils # 0.2 10*3/uL (0.0-0.87); Hematocrit 41.4 VOL% (35.7-47.0); Hemoglobin 13.7 GM/DL (12.0-16.0); Immature Granulocytes % 0.2 %; Immature Granulocytes Absolute 0.02 #; Lymphocytes # 1.9 10*3/uL (1.4-4.0); Lymphocytes % 23.1 % (21.3-54.2); Mean Corpuscular HGB Conc 33.1 GM/DL (32-36); Mean Corpuscular Volume 88.5 FL (87-102); Mean Platelet Volume 10.2 FL (9.6-12.0); Monocytes # 0.7 10*3/uL (0.11-0.8); Monocytes % 8.1 % (1.7-12.7); Neutrophils % 66.1 % (38.7-73.9); Platelet Count 174 T/CUMM (130-400); Red Blood Count 4.68 MC/CUMM (3.8-5.5); Red Cell Distribution Width 13.1 % (9.3-17.3); White Blood Count 8.2 T/CUMM (4-12)
[2022-01-05 09:00] LABS: INR 1.1; PT Patient Result 12.3 SECS (10.5-12.0)
[2022-01-05 09:07] LABS: Calcium 9.6 MG/DL (8.5-10.1); Osmolality,Calculated 279.5 MOS/KG (273-304); Potassium 3.7 MMOL/L (3.5-5.1)
[2022-01-05 10:06] LABS: Bilirubin,Urine Negative (Negative); Blood, Urine Moderate mg/dL (Negative); Glucose,Urine (UA) Negative (Negative); Ketones,Urine Negative (Negative); Nitrite,Urine Positive (Negative); Protein,Urine 100 mg/dL (Negative); Urine Appearance Cloudy (Clear); Urine Color Yellow (Yellow); Urine Urobilinogen 0.2 eU/dL (<2.0)
[2022-01-05] MEDS ORDERED: cefTRIAXone 1,000 MG in SODIUM CHLORIDE 0.9% 100 ML IV STA (10:39)
[2022-01-05] MEDS ORDERED: ACETAMINOPHEN 325 MG TABLET PO PRN (10:39)
[2022-01-05] MEDS ORDERED: KETOROLAC 30 MG/1 ML VIAL IV STA (10:44)
[2022-01-05] MEDS: SODIUM CHLORIDE 0.9% 1,000 ML IV SCH (11:00)
[2022-01-05] MEDS: FLUCONAZOLE INJ 200 MG/100 ML PREMIX IV SCH (14:36)
[2022-01-05] MEDS ORDERED: CETIRIZINE 10 MG TABLET PO PRN (20:11)
[2022-01-05] MEDS ORDERED: traMADol 50 MG TABLET PO SCH (21:00)
[2022-01-05] MEDS: MUPIROCIN 2% OINT 22 GM TUBE TOP SCH (21:13)
[2022-01-05] MEDS: DILTIAZEM CD 240 MG CAPSULE PO SCH (21:14)
[2022-01-05] MEDS: rOPINIRole 0.25 MG TABLET PO SCH (21:15)
[2022-01-05] MEDS: APIXABAN 2.5 MG TABLET PO SCH (21:15)
[2022-01-05] MEDS: ROSUVASTATIN 10 MG TABLET PO SCH (21:16)
[2022-01-06 05:42] LABS: Basophils % 0.3 % (0.0-0.8); Eosinophils # 0.3 10*3/uL (0.0-0.87); Eosinophils % 2.4 % (0.00-10.9); Hematocrit 43.1 VOL% (35.7-47.0); Hemoglobin 14.5 GM/DL (12.0-16.0); Immature Granulocytes % 0.3 %; Immature Granulocytes Absolute 0.03 #; Lymphocytes # 1.8 10*3/uL (1.4-4.0); Lymphocytes % 15.3 % (21.3-54.2); Mean Corpuscular HGB Conc 33.6 GM/DL (32-36); Mean Corpuscular Volume 88.1 FL (87-102); Mean Platelet Volume 10.2 FL (9.6-12.0); Monocytes # 0.9 10*3/uL (0.11-0.8); Monocytes % 7.6 % (1.7-12.7); Neutrophils % 74.1 % (38.7-73.9); Platelet Count 180 T/CUMM (130-400); Red Blood Count 4.89 MC/CUMM (3.8-5.5); White Blood Count 11.9 T/CUMM (4-12)
[2022-01-06 06:02] LABS: Albumin 3.5 G/DL (3.4-5.0); Bilirubin,Total 1.2 MG/DL (0.20-1.00); Calcium 9.1 MG/DL (8.5-10.1); Osmolality,Calculated 280.4 MOS/KG (273-304); Potassium 3.6 MMOL/L (3.5-5.1)
[2022-01-06] MEDS: CARBIDOPA/LEVODOPA 25-100 MG TABLET PO SCH ×3 (06:06→19:09)
[2022-01-06] MEDS: rOPINIRole 0.25 MG TABLET PO SCH ×3 (09:16→21:18)
[2022-01-06] MEDS: MUPIROCIN 2% OINT 22 GM TUBE TOP SCH ×2 (09:16→21:19)
[2022-01-06] MEDS: APIXABAN 2.5 MG TABLET PO SCH ×2 (09:16→21:18)
[2022-01-06] MEDS: PROPRANOLOL 40 MG TABLET PO SCH ×2 (09:16→21:19)
[2022-01-06] MEDS: SODIUM CHLORIDE 0.9% 1,000 ML IV SCH (09:17)
[2022-01-06] MEDS ORDERED: cefTRIAXone 1,000 MG in SODIUM CHLORIDE 0.9% 100 ML IV SCH (11:00)
[2022-01-06] MEDS ORDERED: ONDANSETRON 4 MG/2 ML VIAL IV PRN (14:17)
[2022-01-06] MEDS: traMADol 50 MG TABLET PO SCH ×2 (15:15→21:18)
[2022-01-06] MEDS: FLUCONAZOLE INJ 200 MG/100 ML PREMIX IV SCH (15:34)
[2022-01-06] MEDS: KETOROLAC 15 MG/1 ML VIAL IV SCH ×2 (15:35→23:25)
[2022-01-06] MEDS: ROSUVASTATIN 10 MG TABLET PO SCH (21:18)
[2022-01-06] MEDS: DILTIAZEM CD 240 MG CAPSULE PO SCH (21:18)
[2022-01-07] MEDS: traMADol 50 MG TABLET PO SCH ×4 (02:32→22:44)
[2022-01-07] MEDS: SODIUM CHLORIDE 0.9% 1,000 ML IV SCH (04:13)
[2022-01-07 05:30] LABS: Basophils # 0.1 10*3/uL (0.0-0.2); Basophils % 0.6 % (0.0-0.8); Eosinophils # 0.3 10*3/uL (0.0-0.87); Eosinophils % 2.8 % (0.00-10.9); Hematocrit 40.3 VOL% (35.7-47.0); Hemoglobin 13.7 GM/DL (12.0-16.0); Immature Granulocytes % 0.7 %; Immature Granulocytes Absolute 0.08 #; Lymphocytes # 1.3 10*3/uL (1.4-4.0); Lymphocytes % 12.4 % (21.3-54.2); Mean Platelet Volume 10.8 FL (9.6-12.0); Monocytes # 0.9 10*3/uL (0.11-0.8); Neutrophils % 75.5 % (38.7-73.9); Platelet Count 169 T/CUMM (130-400); Red Blood Count 4.58 MC/CUMM (3.8-5.5); Red Cell Distribution Width 12.9 % (9.3-17.3); White Blood Count 10.8 T/CUMM (4-12)
[2022-01-07 05:41] LABS: Calcium 8.6 MG/DL (8.5-10.1); Osmolality,Calculated 278.5 MOS/KG (273-304); Potassium 3.4 MMOL/L (3.5-5.1)
[2022-01-07] MEDS: CARBIDOPA/LEVODOPA 25-100 MG TABLET PO SCH ×3 (06:15→16:56)
[2022-01-07] MEDS: KETOROLAC 15 MG/1 ML VIAL IV SCH ×3 (06:15→22:44)
[2022-01-07] MEDS ORDERED: POTASSIUM CHLORIDE 20 MEQ TABLET PO ONE (07:25)
[2022-01-07] MEDS: POTASSIUM CHLORIDE INJ 10 MEQ in SODIUM CHLORIDE 0.9% 1,000 ML IV SCH (07:53)
[2022-01-07] MEDS: APIXABAN 2.5 MG TABLET PO SCH ×2 (09:06→22:43)
[2022-01-07] MEDS: rOPINIRole 0.25 MG TABLET PO SCH ×3 (09:06→22:44)
[2022-01-07] MEDS: PROPRANOLOL 40 MG TABLET PO SCH ×2 (09:06→22:42)
[2022-01-07] MEDS: MUPIROCIN 2% OINT 22 GM TUBE TOP SCH ×2 (11:27→22:46)
[2022-01-07] MEDS: FLUCONAZOLE INJ 200 MG/100 ML PREMIX IV SCH (11:40)
[2022-01-07] MEDS: methylPREDNISolone SOD SUC 40 MG/1 ML VIAL IV SCH (14:23)
[2022-01-07] MEDS ORDERED: hydrOXYzine HCL 25 MG/1 ML VIAL IM ONE (17:30)
[2022-01-07] MEDS: ROSUVASTATIN 10 MG TABLET PO SCH (22:41)
[2022-01-07] MEDS: DILTIAZEM CD 240 MG CAPSULE PO SCH (22:43)
[2022-01-07] MEDS: MECLIZINE 25 MG TABLET PO SCH (22:44)
[2022-01-08] MEDS: traMADol 50 MG TABLET PO SCH ×4 (03:26→22:24)
[2022-01-08] MEDS: SODIUM CHLORIDE 0.9% 1,000 ML IV SCH (03:34)
[2022-01-08] MEDS: POTASSIUM CHLORIDE INJ 10 MEQ in SODIUM CHLORIDE 0.9% 1,000 ML IV SCH ×2 (04:44→23:04)
[2022-01-08 05:16] LABS: Basophils % 0.2 % (0.0-0.8); Hematocrit 39.5 VOL% (35.7-47.0); Hemoglobin 13.1 GM/DL (12.0-16.0); Immature Granulocytes % 0.6 %; Immature Granulocytes Absolute 0.04 #; Lymphocytes # 0.8 10*3/uL (1.4-4.0); Lymphocytes % 12.1 % (21.3-54.2); Mean Corpuscular HGB Conc 33.2 GM/DL (32-36); Mean Corpuscular Volume 89.8 FL (87-102); Mean Platelet Volume 10.2 FL (9.6-12.0); Monocytes # 0.2 10*3/uL (0.11-0.8); Monocytes % 3.8 % (1.7-12.7); Neutrophils % 83.3 % (38.7-73.9); Platelet Count 162 T/CUMM (130-400); Red Cell Distribution Width 12.8 % (9.3-17.3); White Blood Count 6.4 T/CUMM (4-12)
[2022-01-08 05:32] LABS: Calcium 8.9 MG/DL (8.5-10.1); Osmolality,Calculated 282.5 MOS/KG (273-304); Potassium 4.3 MMOL/L (3.5-5.1)
[2022-01-08] MEDS: CARBIDOPA/LEVODOPA 25-100 MG TABLET PO SCH ×3 (06:03→16:47)
[2022-01-08] MEDS: KETOROLAC 15 MG/1 ML VIAL IV SCH ×3 (06:04→22:25)
[2022-01-08] MEDS ORDERED: METOCLOPRAMIDE 10 MG/2 ML VIAL IV ONE (08:07)
[2022-01-08] MEDS: methylPREDNISolone SOD SUC 40 MG/1 ML VIAL IV SCH (09:06)
[2022-01-08] MEDS: PROPRANOLOL 40 MG TABLET PO SCH ×2 (09:08→22:24)
[2022-01-08] MEDS: rOPINIRole 0.25 MG TABLET PO SCH ×3 (09:08→22:24)
[2022-01-08] MEDS: MECLIZINE 25 MG TABLET PO SCH ×2 (09:08→22:24)
[2022-01-08] MEDS: MUPIROCIN 2% OINT 22 GM TUBE TOP SCH ×2 (09:08→22:24)
[2022-01-08] MEDS: APIXABAN 2.5 MG TABLET PO SCH ×2 (09:08→22:24)
[2022-01-08] MEDS: FLUCONAZOLE INJ 200 MG/100 ML PREMIX IV SCH (12:37)
[2022-01-08] MEDS ORDERED: hydrOXYzine HCL 25 MG/1 ML VIAL IM ONE (20:30)
[2022-01-08] MEDS: DILTIAZEM CD 240 MG CAPSULE PO SCH (22:23)
[2022-01-08] MEDS: ROSUVASTATIN 10 MG TABLET PO SCH (22:24)
[2022-01-09] MEDS: traMADol 50 MG TABLET PO SCH ×2 (03:17→08:38)
[2022-01-09] MEDS: SODIUM CHLORIDE 0.9% 1,000 ML IV SCH (04:59)
[2022-01-09 07:12] VITALS: BP 143/80
[2022-01-09] MEDS: CARBIDOPA/LEVODOPA 25-100 MG TABLET PO SCH (08:35)
[2022-01-09] MEDS: KETOROLAC 15 MG/1 ML VIAL IV SCH (08:37)
[2022-01-09] MEDS: MECLIZINE 25 MG TABLET PO SCH (08:39)
[2022-01-09] MEDS: APIXABAN 2.5 MG TABLET PO SCH (08:39)
[2022-01-09] MEDS: PROPRANOLOL 40 MG TABLET PO SCH (08:39)
[2022-01-09] MEDS: rOPINIRole 0.25 MG TABLET PO SCH (08:39)
== END 2022-01-09 10:44 | disposition home health service (06) | DRG 605 ==
LOC: EDUNIT# → EDBD → N.ED 08:30 → INTOOBSV 10:39 → N.EDINP 10:39 → N.5E 11:18
PROVIDERS: ADMIT Family Medicine; ATTEND Family Medicine

== ENCOUNTER 2022-09-18 17:10 | Inpatient (IN) ==
[2022-09-18 18:02] LABS: Bacteria,Urine Few /HPF (Few); Glucose,Urine (UA) Negative (Negative); Hyaline Casts,Urine 7 /LPF (0-3); Ketones,Urine Negative (Negative); Mucus,Urine Occasional /LPF (Occasional); Nitrite,Urine Positive (Negative); Protein,Urine Negative (Negative); RBC,Urine 10 /HPF (0-4); Squamous Epithelial Cell,Urine Occasional /HPF (0-10); Urine Appearance Cloudy (Clear); Urine Color Yellow (Yellow)
[2022-09-18 18:03] LABS: Bilirubin,Urine Negative (Negative); Blood, Urine Small mg/dL (Negative); Urine Urobilinogen 0.2 eU/dL (<2.0)
[2022-09-18] MEDS ORDERED: cefTRIAXone 1,000 MG in SODIUM CHLORIDE 0.9% 100 ML IV STA (18:27)
[2022-09-18] MEDS ORDERED: SODIUM CHLORIDE 0.9% 500 ML IV STA (18:28)
[2022-09-18 18:36] LABS: Basophils % 0.3 % (0.0-0.8); Eosinophils # 0.1 10*3/uL (0.0-0.87); Eosinophils % 1.1 % (0.00-10.9); Hematocrit 40.1 VOL% (35.7-47.0); Hemoglobin 13.1 GM/DL (12.0-16.0); Immature Granulocytes % 0.4 %; Immature Granulocytes Absolute 0.04 #; Lymphocytes # 2.4 10*3/uL (1.4-4.0); Mean Corpuscular HGB Conc 32.7 GM/DL (32-36); Mean Corpuscular Volume 89.7 FL (87-102); Mean Platelet Volume 9.8 FL (9.6-12.0); Monocytes # 0.8 10*3/uL (0.11-0.8); Monocytes % 7.6 % (1.7-12.7); Neutrophils % 67.6 % (38.7-73.9); Platelet Count 237 T/CUMM (130-400); Red Blood Count 4.47 MC/CUMM (3.8-5.5); Red Cell Distribution Width 14.1 % (9.3-17.3); White Blood Count 10.59 T/CUMM (4-12)
[2022-09-18 19:05] LABS: Albumin 3.7 G/DL (3.4-5.0); Bilirubin,Total 0.6 MG/DL (0.20-1.00); Calcium 9.5 MG/DL (8.5-10.1); Osmolality,Calculated 288.8 MOS/KG (273-304); Potassium 3.2 MMOL/L (3.5-5.1); Total Protein 6.8 G/DL (6.4-8.2)
[2022-09-18] MEDS ORDERED: POTASSIUM CHLORIDE 20 MEQ TABLET PO STA (19:57)
[2022-09-18] MEDS ORDERED: CETIRIZINE 10 MG TABLET PO PRN (20:19)
[2022-09-18] MEDS ORDERED: ONDANSETRON 4 MG/2 ML VIAL IV PRN (20:19)
[2022-09-18] MEDS ORDERED: NON-FORMULARY MEDICATION (Acetaminophen [Tylenol Arthritis Pain] 650 mg Tablet Extended Re PO PRN (20:19)
[2022-09-18] MEDS ORDERED: ACETAMINOPHEN 325 MG TABLET PO PRN (20:19)
[2022-09-18 20:30] LABS: Sedimentation Rate-Westergren 23 MM/HR (0-30)
[2022-09-18] MEDS ORDERED: FUROSEMIDE 20 MG TABLET PO SCH (20:30)
[2022-09-18] MEDS ORDERED: oxyCODONE/ACETAMINOPHEN 5-325 MG TABLET PO PRN (22:00)
[2022-09-18] MEDS: CARBIDOPA/LEVODOPA 25-100 MG TABLET PO SCH (23:06)
[2022-09-18] MEDS: MELATONIN 3 MG TABLET PO SCH (23:06)
[2022-09-18] MEDS: rOPINIRole 0.25 MG TABLET PO SCH (23:06)
[2022-09-18] MEDS: GABAPENTIN 300 MG CAPSULE PO SCH (23:07)
[2022-09-18] MEDS: APIXABAN 2.5 MG TABLET PO SCH (23:07)
[2022-09-18] MEDS: FUROSEMIDE 20 MG TABLET PO SCH (23:07)
[2022-09-18] MEDS: SODIUM CHLORIDE 0.9% 1,000 ML IV SCH (23:07)
[2022-09-18] MEDS: DOCUSATE SODIUM 100 MG CAPSULE PO SCH (23:07)
[2022-09-19 05:31] LABS: Basophils % 0.5 % (0.0-0.8); Eosinophils # 0.2 10*3/uL (0.0-0.87); Eosinophils % 2.6 % (0.00-10.9); Hematocrit 35.8 VOL% (35.7-47.0); Hemoglobin 11.8 GM/DL (12.0-16.0); Immature Granulocytes % 0.5 %; Immature Granulocytes Absolute 0.04 #; Lymphocytes # 2.5 10*3/uL (1.4-4.0); Lymphocytes % 33.7 % (21.3-54.2); Mean Corpuscular Volume 90.4 FL (87-102); Mean Platelet Volume 9.6 FL (9.6-12.0); Monocytes # 0.5 10*3/uL (0.11-0.8); Monocytes % 7.3 % (1.7-12.7); Neutrophils % 55.4 % (38.7-73.9); Platelet Count 204 T/CUMM (130-400); Red Blood Count 3.96 MC/CUMM (3.8-5.5); Red Cell Distribution Width 14.1 % (9.3-17.3); White Blood Count 7.28 T/CUMM (4-12)
[2022-09-19 06:00] LABS: Alanine Aminotransferase < 6 U/L (13-56); Albumin 3.1 G/DL (3.4-5.0); Alkaline Phosphatase 44 U/L (45-117); Aspartate Amino Transferase 12 U/L (0-37); Blood Urea Nitrogen 16 MG/DL (7-18); Calcium 8.7 MG/DL (8.5-10.1); Carbon Dioxide 27 MMOL/L (21-32); Chloride 113 MMOL/L (98-107); Glucose 96 MG/DL (74-106); Osmolality,Calculated 288.7 MOS/KG (273-304); Potassium 3.3 MMOL/L (3.5-5.1); Sodium 145 MMOL/L (136-145); Total Protein 6.2 G/DL (6.4-8.2)
[2022-09-19] MEDS ORDERED: oxyCODONE/ACETAMINOPHEN 5-325 MG TABLET PO PRN (08:11)
[2022-09-19] MEDS: BACILLUS COAGULANS CAPLET PO SCH (08:44)
[2022-09-19] MEDS: POTASSIUM CHLORIDE 20 MEQ TABLET PO SCH (08:44)
[2022-09-19] MEDS: CALCIUM (CARBONATE)/VITAMIN D 600 MG-400 UNIT TABLET PO SCH (08:45)
[2022-09-19] MEDS: APIXABAN 2.5 MG TABLET PO SCH ×4 (08:45→09:56)
[2022-09-19] MEDS: CARBIDOPA/LEVODOPA 25-100 MG TABLET PO SCH ×3 (08:45→20:36)
[2022-09-19] MEDS: FUROSEMIDE 20 MG TABLET PO SCH (08:45)
[2022-09-19] MEDS: VITAMIN E 400 UNIT CAPSULE PO SCH (08:45)
[2022-09-19] MEDS: MULTIVITAMIN (OCUVITE) TABLET PO SCH (08:45)
[2022-09-19] MEDS: rOPINIRole 0.25 MG TABLET PO SCH ×3 (08:45→20:35)
[2022-09-19] MEDS: PANTOPRAZOLE 40 MG TABLET PO SCH (08:45)
[2022-09-19] MEDS: DILTIAZEM CD 240 MG CAPSULE PO SCH (08:45)
[2022-09-19] MEDS: MAGNESIUM CHLORIDE 64 MG TABLET PO SCH (08:45)
[2022-09-19] MEDS: GABAPENTIN 300 MG CAPSULE PO SCH ×3 (08:45→20:35)
[2022-09-19] MEDS: DOCUSATE SODIUM 100 MG CAPSULE PO SCH ×2 (08:46→20:36)
[2022-09-19] MEDS: PROPRANOLOL 40 MG TABLET PO SCH ×2 (08:50→20:35)
[2022-09-19] MEDS: SODIUM CHLORIDE 0.9% 1,000 ML IV SCH ×3 (08:50→23:01)
[2022-09-19] MEDS: [UNRECOGNIZED DRUG - OTHER] PO SCH (08:55)
[2022-09-19] MEDS ORDERED: PROPRANOLOL LA 80 MG CAPSULE PO SCH (09:00)
[2022-09-19] MEDS ORDERED: POTASSIUM CHLORIDE 20 MEQ TABLET PO SCH (09:00)
[2022-09-19] MEDS: cefTRIAXone 1,000 MG in SODIUM CHLORIDE 0.9% 100 ML IV SCH (17:50)
[2022-09-19] MEDS: MELATONIN 3 MG TABLET PO SCH (20:35)
[2022-09-20] MEDS: SODIUM CHLORIDE 0.9% 1,000 ML IV SCH ×2 (06:45→18:09)
[2022-09-20] MEDS: BACILLUS COAGULANS CAPLET PO SCH (09:12)
[2022-09-20] MEDS: CALCIUM (CARBONATE)/VITAMIN D 600 MG-400 UNIT TABLET PO SCH (09:12)
[2022-09-20] MEDS: DOCUSATE SODIUM 100 MG CAPSULE PO SCH ×2 (09:12→21:10)
[2022-09-20] MEDS: DILTIAZEM CD 240 MG CAPSULE PO SCH (09:12)
[2022-09-20] MEDS: VITAMIN E 400 UNIT CAPSULE PO SCH (09:13)
[2022-09-20] MEDS: MAGNESIUM CHLORIDE 64 MG TABLET PO SCH (09:13)
[2022-09-20] MEDS: MULTIVITAMIN (OCUVITE) TABLET PO SCH (09:13)
[2022-09-20] MEDS: FUROSEMIDE 20 MG TABLET PO SCH ×2 (09:13→21:10)
[2022-09-20] MEDS: POTASSIUM CHLORIDE 20 MEQ TABLET PO SCH (09:13)
[2022-09-20] MEDS: PANTOPRAZOLE 40 MG TABLET PO SCH (09:13)
[2022-09-20] MEDS: PROPRANOLOL 40 MG TABLET PO SCH ×2 (09:13→21:12)
[2022-09-20] MEDS: rOPINIRole 0.25 MG TABLET PO SCH ×3 (09:13→21:12)
[2022-09-20] MEDS: GABAPENTIN 300 MG CAPSULE PO SCH ×3 (09:13→21:12)
[2022-09-20] MEDS: CARBIDOPA/LEVODOPA 25-100 MG TABLET PO SCH ×3 (09:13→21:11)
[2022-09-20] MEDS: [UNRECOGNIZED DRUG - OTHER] PO SCH (10:35)
[2022-09-20] MEDS ORDERED: TUBERCULIN SKIN TEST 0.1 ML SYRINGE INTRADERM ONE (11:00)
[2022-09-20] MEDS: traMADol 50 MG TABLET PO PRN (14:48)
[2022-09-20] MEDS: cefTRIAXone 1,000 MG in SODIUM CHLORIDE 0.9% 100 ML IV SCH (18:09)
[2022-09-20] MEDS: MELATONIN 3 MG TABLET PO SCH (21:11)
[2022-09-21 06:07] LABS: Basophils % 0.3 % (0.0-0.8); Eosinophils # 0.2 10*3/uL (0.0-0.87); Eosinophils % 2.5 % (0.00-10.9); Hematocrit 38.1 VOL% (35.7-47.0); Hemoglobin 12.3 GM/DL (12.0-16.0); Immature Granulocytes % 0.3 %; Immature Granulocytes Absolute 0.03 #; Lymphocytes # 2.7 10*3/uL (1.4-4.0); Lymphocytes % 30.8 % (21.3-54.2); Mean Corpuscular HGB Conc 32.3 GM/DL (32-36); Mean Corpuscular Volume 90.1 FL (87-102); Mean Platelet Volume 9.8 FL (9.6-12.0); Monocytes # 0.8 10*3/uL (0.11-0.8); Monocytes % 8.7 % (1.7-12.7); Neutrophils % 57.4 % (38.7-73.9); Platelet Count 213 T/CUMM (130-400); Red Blood Count 4.23 MC/CUMM (3.8-5.5); Red Cell Distribution Width 14.1 % (9.3-17.3); White Blood Count 8.67 T/CUMM (4-12)
[2022-09-21 06:22] LABS: Calcium 8.5 MG/DL (8.5-10.1); Osmolality,Calculated 279.3 MOS/KG (273-304); Potassium 3.3 MMOL/L (3.5-5.1)
[2022-09-21] MEDS: PROPRANOLOL 40 MG TABLET PO SCH ×2 (09:19→20:49)
[2022-09-21] MEDS: BACILLUS COAGULANS CAPLET PO SCH (09:19)
[2022-09-21] MEDS: MAGNESIUM CHLORIDE 64 MG TABLET PO SCH (09:19)
[2022-09-21] MEDS: GABAPENTIN 300 MG CAPSULE PO SCH ×3 (09:19→20:49)
[2022-09-21] MEDS: DILTIAZEM CD 240 MG CAPSULE PO SCH (09:20)
[2022-09-21] MEDS: FUROSEMIDE 20 MG TABLET PO SCH (09:20)
[2022-09-21] MEDS: CARBIDOPA/LEVODOPA 25-100 MG TABLET PO SCH ×3 (09:20→20:50)
[2022-09-21] MEDS: POTASSIUM CHLORIDE 20 MEQ TABLET PO SCH (09:20)
[2022-09-21] MEDS: DOCUSATE SODIUM 100 MG CAPSULE PO SCH ×2 (09:20→20:50)
[2022-09-21] MEDS: MULTIVITAMIN (OCUVITE) TABLET PO SCH (09:20)
[2022-09-21] MEDS: rOPINIRole 0.25 MG TABLET PO SCH ×3 (09:21→20:50)
[2022-09-21] MEDS: PANTOPRAZOLE 40 MG TABLET PO SCH (09:21)
[2022-09-21] MEDS: SODIUM CHLORIDE 0.9% 1,000 ML IV SCH ×4 (09:21→20:45)
[2022-09-21] MEDS: VITAMIN E 400 UNIT CAPSULE PO SCH (09:21)
[2022-09-21] MEDS: CALCIUM (CARBONATE)/VITAMIN D 600 MG-400 UNIT TABLET PO SCH (09:29)
[2022-09-21] MEDS: [UNRECOGNIZED DRUG - OTHER] PO SCH (10:02)
[2022-09-21] MEDS: traMADol 50 MG TABLET PO PRN (17:51)
[2022-09-21] MEDS ORDERED: cefTRIAXone 1,000 MG VIAL IM ONE (18:00)
[2022-09-21] MEDS: MELATONIN 3 MG TABLET PO SCH (20:49)
[2022-09-22] MEDS: SODIUM CHLORIDE 0.9% 1,000 ML IV SCH (08:22)
[2022-09-22] MEDS: DILTIAZEM CD 240 MG CAPSULE PO SCH (08:28)
[2022-09-22] MEDS: POTASSIUM CHLORIDE 20 MEQ TABLET PO SCH (08:28)
[2022-09-22] MEDS: FUROSEMIDE 20 MG TABLET PO SCH (08:29)
[2022-09-22] MEDS: rOPINIRole 0.25 MG TABLET PO SCH ×3 (08:29→20:22)
[2022-09-22] MEDS: PROPRANOLOL 40 MG TABLET PO SCH ×2 (08:29→20:21)
[2022-09-22] MEDS: PANTOPRAZOLE 40 MG TABLET PO SCH (08:29)
[2022-09-22] MEDS: GABAPENTIN 300 MG CAPSULE PO SCH ×3 (08:29→20:24)
[2022-09-22] MEDS: MULTIVITAMIN (OCUVITE) TABLET PO SCH (08:29)
[2022-09-22] MEDS: DOCUSATE SODIUM 100 MG CAPSULE PO SCH ×2 (08:30→20:21)
[2022-09-22] MEDS: CALCIUM (CARBONATE)/VITAMIN D 600 MG-400 UNIT TABLET PO SCH (08:30)
[2022-09-22] MEDS: MAGNESIUM CHLORIDE 64 MG TABLET PO SCH (08:30)
[2022-09-22] MEDS: VITAMIN E 400 UNIT CAPSULE PO SCH (08:30)
[2022-09-22] MEDS: BACILLUS COAGULANS CAPLET PO SCH (08:30)
[2022-09-22] MEDS: traMADol 50 MG TABLET PO PRN (08:31)
[2022-09-22] MEDS: CARBIDOPA/LEVODOPA 25-100 MG TABLET PO SCH ×3 (08:31→20:21)
[2022-09-22] MEDS: [UNRECOGNIZED DRUG - OTHER] PO SCH (09:31)
[2022-09-22] MEDS ORDERED: cefTRIAXone 1,000 MG VIAL IM ONE (18:00)
[2022-09-22] MEDS: MELATONIN 3 MG TABLET PO SCH (20:22)
[2022-09-23 06:29] LABS: Basophils # 0.1 10*3/uL (0.0-0.2); Basophils % 0.6 % (0.0-0.8); Eosinophils # 0.3 10*3/uL (0.0-0.87); Hematocrit 39.1 VOL% (35.7-47.0); Hemoglobin 13.2 GM/DL (12.0-16.0); Immature Granulocytes % 0.4 %; Immature Granulocytes Absolute 0.03 #; Lymphocytes % 23.9 % (21.3-54.2); Mean Corpuscular HGB Conc 33.8 GM/DL (32-36); Mean Corpuscular Volume 87.7 FL (87-102); Mean Platelet Volume 9.7 FL (9.6-12.0); Monocytes # 0.7 10*3/uL (0.11-0.8); Monocytes % 8.2 % (1.7-12.7); Neutrophils % 63.9 % (38.7-73.9); Platelet Count 201 T/CUMM (130-400); Red Blood Count 4.46 MC/CUMM (3.8-5.5); White Blood Count 8.27 T/CUMM (4-12)
[2022-09-23 07:00] LABS: Calcium 9.2 MG/DL (8.5-10.1); Osmolality,Calculated 279.3 MOS/KG (273-304); Potassium 3.8 MMOL/L (3.5-5.1)
[2022-09-23] MEDS ORDERED: cephALEXin 500 MG CAPSULE PO SCH (09:15)
[2022-09-23] MEDS: VITAMIN E 400 UNIT CAPSULE PO SCH (09:45)
[2022-09-23] MEDS: PROPRANOLOL 40 MG TABLET PO SCH (09:45)
[2022-09-23] MEDS: GABAPENTIN 300 MG CAPSULE PO SCH (09:45)
[2022-09-23] MEDS: POTASSIUM CHLORIDE 20 MEQ TABLET PO SCH (09:45)
[2022-09-23] MEDS: CALCIUM (CARBONATE)/VITAMIN D 600 MG-400 UNIT TABLET PO SCH (09:45)
[2022-09-23] MEDS: rOPINIRole 0.25 MG TABLET PO SCH (09:46)
[2022-09-23] MEDS: CARBIDOPA/LEVODOPA 25-100 MG TABLET PO SCH (09:46)
[2022-09-23] MEDS: MAGNESIUM CHLORIDE 64 MG TABLET PO SCH (09:46)
[2022-09-23] MEDS: BACILLUS COAGULANS CAPLET PO SCH (09:46)
[2022-09-23] MEDS: MULTIVITAMIN (OCUVITE) TABLET PO SCH (09:46)
[2022-09-23] MEDS: DOCUSATE SODIUM 100 MG CAPSULE PO SCH (09:46)
[2022-09-23] MEDS: DILTIAZEM CD 240 MG CAPSULE PO SCH (09:46)
[2022-09-23] MEDS: PANTOPRAZOLE 40 MG TABLET PO SCH (09:46)
[2022-09-23] MEDS: [UNRECOGNIZED DRUG - OTHER] PO SCH (09:47)
[2022-09-23] MEDS: FUROSEMIDE 20 MG TABLET PO SCH (09:52)
[2022-09-23 09:55] VITALS: BP 124/63
== END 2022-09-23 11:26 | DRG 690 ==
LOC: EDBD → EDUNIT# → N.ED 17:10 → N.EDINP 19:59 → N.3E 22:07
PROVIDERS: ADMIT Family Medicine; ATTEND Family Medicine